=== PATIENT | male | born 1995 | race Caucasian/White ===

== ENCOUNTER 2016-10-25 03:20 | Observation (INO) | payer MEDICAID ==
--- NOTE | 2016-10-25 03:44 | ED PDOC ---
HPI: Psych/Substance Abuse Time Seen by Provider: 10/25/16 03:25 Chief Complaint (Nursing): Alcohol Ingestion Chief Complaint (Provider): alcohol intoxication ED Caveat: Intoxicated History Per: Patient History/Exam Limitations: intoxication Onset/Duration Of Symptoms: Mins Current Symptoms Are (Timing): Still Present Additional Complaint(s): 21yo male presents to the ED for eval of alcohol intoxication. Patient unable to provide hx due to intoxicated state. Denies any medical or psychiatric complaints. Past Medical History Reviewed: Historical Data, Nursing Documentation, Vital Signs, Unable To Obtain (due to intoxication ) Vital Signs: Last Vital Signs Temp 98 F 10/25/16 03:30 Pulse 101 H 10/25/16 03:30 Resp 16 10/25/16 03:30 BP 148/82 10/25/16 03:30 Pulse Ox 100 10/25/16 03:30 - Family History Family History: States: Unknown Family Hx - Immunization History Hx Tetanus Toxoid Vaccination: No Hx Influenza Vaccination: No Hx Pneumococcal Vaccination: No - Home Medications Home Medications: Ambulatory Orders Medication Instructions Recorded Famotidine [Pepcid] 20 mg PO HS #30 tab 09/26/15 Ibuprofen [Motrin] 600 mg PO Q6H PRN #20 tab 09/26/15 Penicillin VK [Pen-Vee K] 2 tab PO BID #28 tab 09/26/15 - Allergies Allergies/Adverse Reactions: Allergies Allergy/AdvReac Type Severity Reaction Status Date / Time No Known Allergies Allergy Verified 10/25/16 03:28 Review of Systems Review Of Systems: ROS cannot be obtained secondary to pt's inabilty to answer questions. (due to intoxication) Physical Exam - Reviewed Nursing Documentation Reviewed: Yes Vital Signs Reviewed: Yes - Physical Exam Appears: Positive for: Well (appears intoxicated ), No Acute Distress Head Exam: Positive for: ATRAUMATIC, NORMAL INSPECTION, NORMOCEPHALIC Skin: Positive for: Normal Color, Warm, Dry Eye Exam: Positive for: Normal appearance, EOMI, PERRL ENT: Positive for: Normal ENT Inspection Neck: Positive for: Normal, Painless ROM, Supple Cardiovascular/Chest: Positive for: Regular Rate, Rhythm. Negative for: Tachycardia Respiratory: Positive for: Normal Breath Sounds. Negative for: Respiratory Distress Gastrointestinal/Abdominal: Positive for: Normal Exam, Soft. Negative for: Tenderness Back: Positive for: Normal Inspection Extremity: Positive for: Normal ROM. Negative for: Deformity, Swelling Neurologic/Psych: Positive for: Alert - ECG O2 Sat by Pulse Oximetry: 100 Pulse Ox Interpretation: Normal (RA) Medical Decision Making Medical Decision Makin: Impression: alcohol intoxication Plan: alc serum Ativan 2mg IM, Haldol 5mg IM accucheck ED obs reassess Patient s/o to Dr. Estes at 0700 pending sobriety. Scribe Attestation: Documented by Melissa Tinoco acting as a scribe for Volodymyr Ching MD. Provider Scribe Attestation: All medical record entries made by the Scribe were at my direction and personally dictated by me. I have reviewed the chart and agree that the record accurately reflects my personal performance of the history, physical exam, medical decision making, and the department course for this patient. I have also personally directed, reviewed, and agree with the discharge instructions and disposition. ED OBSERVATION Date of observation admission: 10/25/16 Time of observation admission: 03:42 - Observation admission statement Patient is being placed in observation because:: alcohol intoxication - Goals of Observation Goals of observation are:: pending sobriety Disposition - Clinical Impression Clinical Impression: Alcohol abuse - Patient ED Disposition Is Patient to be Admitted: Transfer of Care - Disposition Disposition: Transfer of Care Disposition Time: 07:00 Condition: STABLE Patient Signed Over To: Donny Estes Handoff Comments: pending sobriety
--- NOTE | 2016-10-25 07:12 | ED PDOC ---
- ECG O2 Sat by Pulse Oximetry: 100 - Progress ED Course And Treament: 1225: Stable. Continue monitoring. More awake. 1415: Stable. AAOx3. Ambulated. Tolerated PO. Vinny fletcher pcp. Medical Decision Making Medical Decision Making: Time: 0700 Patient signed out by Dr[address] Ching pending sobriety Scribe Attestation: Documented by Nilsa Tomas acting as a scribe for Donny Estes MD MD Scribe Attestation: All medical record entries made by the Scribe were at my direction and personally dictated by me. I have reviewed the chart and agree that the record accurately reflects my personal performance of the history, physical exam, medical decision making, and the department course for this patient. I have also personally directed, reviewed, and agree with the discharge instructions and disposition. Disposition - Clinical Impression Clinical Impression: Alcohol abuse - POA Present On Arrival: None - Disposition Disposition: Routine/Home Disposition Time: 14:15 Condition: STABLE
[2016-10-25 11:24] VITALS: BP 128/40; PULSE 59; RESP 18; TEMP 98.2
[2016-10-25 12:26] VITALS: O2SAT 100
== END 2016-10-25 14:15 | disposition home or self-care (01) ==
LOC: H.ER 03:20 → H.EROBSV 03:42
PROVIDERS: ADMIT Emergency Medicine; ATTEND Emergency Medicine
DX: F10.129 Alcohol abuse with intoxication, unspecified (principal); Y90.8 Blood alcohol level of 240 mg/100 ml or more
CPT/HCPCS: 36415; 82948; 96372; 99285; G0378; G0480; J1630; J2060